=== PATIENT | male | born 1940 | race African-American/Black ===

== ENCOUNTER 2017-01-18 20:44 | Emergency (ER) | payer OTHER, BC ==
[~2017-01-18] VITALS: Ht 177.8 cm; Wt 92.4 kg
[~2017-01-18 20:44] MED LIST: ASPIRIN81 M1 PO; CARDURA2 M1 PO; Coumadin Protocol PO; Dulcolax PR; Flexeril PO; GLIPIZIDE10 MG PO; GLUCOPHAGE1000 MG PO; HYDROCHLOROTH12.5 M3 PO; LOPROX 0.77% TP; Percocet 5/325,Endoc PO; WELCHOL625 MG PO
[2017-01-18] MEDS ORDERED: DOXYCYCLINE HY100 MG PO (21:36)
[2017-01-18 21:55] VITALS: BP 169/84
== END 2017-01-18 22:00 | disposition home or self-care (01) ==
LOC: EME 20:44
DX: L97.829 Non-pressure chronic ulcer of other part of left lower leg with unspecified severity (principal); E11.9 Type 2 diabetes mellitus without complications; Z79.84 Long term (current) use of oral hypoglycemic drugs
CPT/HCPCS: 99281; 99283